=== PATIENT | female | born 1950 | race Caucasian/White ===

== ENCOUNTER 2020-10-22 06:26 | Emergency (ER) | payer MEDICARE, SELFPAY ==
[2020-10-22 06:53] VITALS: BP 144/79; PULSE 83; RESP 14; TEMP 36.7; O2SAT 99
--- NOTE | 2020-10-22 07:13 | ED.GENADULT ---
HPI - General Adult General Chief complaint: Abdominal Pain Stated complaint: severe cramping Source: patient Mode of arrival: ambulatory Limitations: no limitations History of Present Illness HPI narrative: Marilou is a 70F with a PMH of osteoporosis and HLD that presented to the ED with abdominal pain. It woke her up at 0330 this morning. It is a waxing and waning bilateral lower abdominal pain. No nausea, vomiting, diarrhea, constipation, chest pain, SOB, dysuria, hematuria or back pain reported. No trauma to the area. Only previous abdominal surgery was sections. Related Data Home Medications Medication Instructions Recorded Confirmed ibandronate 150 mg PO MONTHLY 10/22/20 10/22/20 rosuvastatin 5 mg PO EVERY OTHER DAY 10/22/20 10/22/20 Allergies Allergy/AdvReac Type Severity Reaction Status Date / Time No Known Allergies Allergy Verified 10/22/20 06:48 Review of Systems Constitutional: Constitutional: Reports no additional constitutional complaints, Denies chills, Denies fever(s) and Denies weakness Eyes: Eyes: Reports no additional eye complaints ENT: Reports system reviewed and no additional complaints, except as documented Cardiovascular: Cardiovascular: Reports no additional cardiovascular complaints Respiratory: Respiratory: Reports no additional respiratory complaints Gastrointestinal: Gastrointestinal: Reports as per HPI Genitourinary: Genitourinary: Reports no additional female genitourinary complaints Musculoskeletal: Musculoskeletal: Reports no additional musculoskeletal complaints Integumentary/Breasts: Skin/Breast: Reports system reviewed and no additional complaints, except as docu Neurologic: Reports system reviewed and no additional complaints, except as documented Psychiatric: Psychiatric: Reports no additional psychiatric complaints [facility] Social History Social History Gender identity (if verbalized by the patient): Female Exam Const: General: no acute distress and alert Orientation/consciousness: patient oriented x3 Limitations: No altered mental status HENMT: Head: normal to inspection Eyes: Conjunctivae: conjunctivae normal Pupils: Equal, round and reactive pupils present Neck: Neck: normal visual inspection Chest: Chest palpation & inspection: normal inspection of the chest Resp: Effort & Inspection: normal respiratory effort Auscultation: clear to auscultation bilaterally Cardio: Rate: regular rate Rhythm: regular rhythm GI: Inspection: non-distended GI Palp: Yes Soft to palpation, No Guarding due to palpation present (GI) and No Rigid due to palpation Other: Mild TTP in the lower quadrants bilaterally. No rebound tenderness, no guarding, negative Bar sign. : General: Yes no CVA tenderness Skin: General skin exam: normal color Rashes: no rashes Neuro: General: patient oriented x3 and moves all extremities Extrem: General: normal to inspection Psych: Mental Status: mental status grossly normal Course Course Emergency Course: Marilou was evaluated. Given 1L of LR and 4mog of morphine for pain. She felt much better after the fluids and morphine. Her labs were largely unremarkable. Given she had no leukocytosis, no elevated ALT/AST or alk phos, lactic acid, recent BM (yesterday) and normal UA I believe this is from abdominal cramping and not acute appendicitis, cholecystitis, ischemic bowel, SBO, etc. She was told to return if she did not feel better. Vital Signs Vital signs: Vital Signs Temperature 98.0 F 10/22/20 06:53 Pulse Rate 83 10/22/20 06:53 Respiratory Rate 14 10/22/20 06:53 Blood Pressure 144/79 H 10/22/20 06:53 Pulse Oximetry 99 10/22/20 06:53 Temperature 98.0 F 10/22/20 06:53 Pulse Rate 83 10/22/20 06:53 Respiratory Rate 14 10/22/20 06:53 Blood Pressure 144/79 H 10/22/20 06:53 Pulse Oximetry 99 10/22/20 06:53 Medical Decision Jovanny
[2020-10-22] MEDS: MORPHINE SULFATE (*CRX) 4 MG/ML INJ IV PUSH (07:33)
[2020-10-22 07:34] LABS: Basophils Absolute Auto 0.03 K/mm3 (0.00-0.10); Basophils Percent Auto 0.5 % (0.0-1.0); Eosinophils Absolute Auto 0.02 K/mm3 (0.02-0.50); Eosinophils Percent Auto 0.3 % (1.0-6.0); Hematocrit 36.7 % (35.0-42.0); Hemoglobin 12.5 g/dL (11.7-13.8); Immature Granulocyte Absolute 0.02 K/mm3 (0.00-0.00); Immature Granulocyte Percent A 0.3 % (0.0-0.0); Lymphocytes Absolute Auto 1.14 K/mm3 (1.10-4.50); Lymphocytes Percent Auto 18.1 % (18.0-42.0); Mean Corpuscular HGB Conc 34.1 g/dL (32.0-36.0); Mean Corpuscular Hemoglobin 30.9 pg (27.0-31.0); Mean Corpuscular Volume 90.6 fL (78.0-102.0); Mean Platelet Volume 9.9 fl (9.2-11.8); Monocytes Absolute Auto 0.34 K/mm3 (0.10-0.90); Monocytes Percent Auto 5.4 % (2.0-11.0); Neutrophils Absolute Auto 4.8 K/mm3 (1.7-7.2); Neutrophils Percent Auto 75.4 % (50.0-70.0); Platelet Count Result 164 K/mm3 (150-420); Red Blood Count 4.05 M/mm3 (4.20-5.40); Red Cell Distribution Width 11.8 % (11.6-14.4); White Blood Count 6.3 K/mm3 (4.8-10.8)
[2020-10-22] MEDS: LACTATED RINGERS 1,000 ML 999 ML IV CONT (07:34)
[2020-10-22 07:36] LABS: Add Urine Microscopic? YES; Appearance Urine Clear (Clear); Bilirubin Urine Negative (Negative); Blood Urine 1+ (Negative); Color Urine Yellow (Yellow); Glucose Urine UA Negative (Negative); Ketones Urine Negative (Negative); Leukocyte Esterase Ur Negative (Negative); Nitrate Urine Negative (Negative); Protein Urine Negative (Negative); Specific Grav Ur >= 1.030 (1.010-1.020); Urobilinogen Urine 0.2 mg/dL (0.2-1.0); pH Urine 5.5 (5.0-8.0)
[2020-10-22 07:40] LABS: RBC Urine 0-2 /hpf (0-2); WBC Urine None seen /hpf (0-3)
[2020-10-22 07:41] LABS: Bacteria Urine Trace /hpf; Squamous Epithelial Cell Urine Rare /hpf (Few)
[2020-10-22 07:46] LABS: INR 1.1; Prothrombin Time 11.3 Seconds (9.50-12.10)
[2020-10-22 07:49] LABS: Alanine Aminotransferase 20 U/L (14-59); Albumin Level 3.8 g/dL (3.4-5.0); Alkaline Phosphatase 41 U/L (46-116); Anion Gap 9 mmol/L (8-16); Aspartate Amino Transferase 20 U/L (15-37); Bilirubin,Total 0.9 mg/dL (0.00-1.00); Blood Urea Nitrogen 9 mg/dL (7-18); Calcium 9.2 mg/dL (8.5-10.1); Carbon Dioxide 29 mmol/L (21-32); Chloride 104 mmol/L (98-108); Estimated CRCL calculation 66 ml/min; Estimated Glomerular Filt Rate > 60; Glucose 109 mg/dL (70-99); Lipase 154 U/L (73-393); Osmolality Calculated 293 mOsm/kg (285-295); Potassium 3.6 mmol/L (3.5-5.1); Sodium 142 mmol/L (136-145); Total Protein 6.6 g/dL (6.4-8.2)
[2020-10-22 07:54] LABS: Lactic Acid Reflex 1.2 mmol/L (0.4-2.0)
[2020-10-22 08:17] LABS: CRP < 0.5 mg/dL (0.0-0.9)
[2020-10-22 08:38] VITALS: BP 131/67; PULSE 68; RESP 12; O2SAT 99
== END 2020-10-22 08:35 | disposition home or self-care (01) ==
PROVIDERS: Emergency Provider Family Medicine; PCP Internal Medicine
DX: R10.9 Unspecified abdominal pain (principal); E78.5 Hyperlipidemia, unspecified
CPT/HCPCS: 36415; 80053; 81001; 83605; 83690; 85025; 85610; 86140; 96361; 96374; 99283; 99284; J2270; J7120

== ENCOUNTER 2022-07-13 00:52 | Day surgery (SDC) | payer MEDICARE, SELFPAY ==
[2022-06-29 14:59] VITALS: BMI 17.9
[2022-07-13 10:15] VITALS: BP 134/62; PULSE 91; RESP 20; TEMP 36.6; O2SAT 98
[2022-07-13] MEDS: LACTATED RINGERS 1,000 ML 150 ML IV CONT (10:26)
--- NOTE | 2022-07-13 10:39 | P.PNAN_ITS ---
Anes - Initial Pre Proc Eval Procedure: Operation Date: 07/13/22 11:30 Proposed Procedures p Screening Colonoscopy - Naman Juarez MD Date/Time: 07/13/22 10:39 Surgeon: Naman Juarez MD Pre Op Diagnosis: neoplasm screening Patient Data Age: 71 Gender: F Height: 1.73 m Weight: 52.5 kg Last Vital Signs Temp 36.6 C 07/13/22 10:15 Pulse 91 07/13/22 10:15 Resp 20 07/13/22 10:15 BP 134/62 07/13/22 10:15 Pulse Ox 98 07/13/22 10:15 O2 Del Method Room Air 07/13/22 10:15 Allergies Allergy/AdvReac Type Severity Reaction Status Date / Time No Known Allergies Allergy Verified 07/13/22 10:13 Home Medications Medication Instructions Recorded Confirmed Type ibandronate 150 mg tablet 150 mg PO MONTHLY #3 tabs 05/11/22 06/29/22 Rx rosuvastatin 5 mg tablet 5 mg PO EVERY OTHER DAY #45 tabs 05/11/22 06/29/22 Rx Patient hx anesthesia problems: none Family hx anesthesia problems: none Results Review: All pre-operative results and documents have been reviewed as part of the pre- operative evaluation. [facility] Social History Social History Smoking status: Never smoker Substance use: never Substance use type: does not use Living arrangements: other Additional living arrangements comments: with sp Gender identity (if verbalized by the patient): Female Anes - Eval Final PreProcedure Day of Procedure 07/13/22 10:40 Patient weight: thin Heart: regular rate and rhythm Lungs: clear to auscultation Airway: Mallampati scale class II Neurological: alert and oriented Last oral intake: >/= 8 hours ASA classification: II Emergent: no Anesthetic plan: proceed Anesthesia type and monitoring: general GIVS and standard monitoring Results Review: All pre-operative results and documents have been reviewed as part of the pre- operative evaluation. Informed Consent: The patient's anesthetic plan and its attendant risks and benefits were discussed with the patient/family/POA. Questions were solicited and answers provided to the satisfaction of the patient/family/POA.
--- NOTE | 2022-07-13 10:55 | P.HP_ITS ---
History of Present Illness History of Present Illness Consent: Risks, benefits, and alternatives have been discussed and questions answered. Patient agrees to proceed with procedure. Chief complaint: neoplasm screening Narrative: Marilou Lewis is a 71 year old female here for screening colonoscopy, last one 10 years ago Review of Systems Constitutional: Constitutional: Denies headache(s) and Denies weakness Eyes: Eyes: Denies blurry vision ENT: Reports Normal hearing present, Denies headache(s) and Denies neck pain Cardiovascular: Cardiovascular: Denies chest pain and Denies dyspnea Respiratory: Respiratory: Denies dyspnea Gastrointestinal: Gastrointestinal: Reports no additional gastrointestinal com plaints Genitourinary: Genitourinary: Denies dysuria Musculoskeletal: Musculoskeletal: Denies neck pain Integumentary/Breasts: Skin/Breast: Denies dry skin Neurologic: Reports Normal hearing present, Denies headache(s) and Denies weakness Psychiatric: Psychiatric: Denies anxiety Endocrine: Endocrine: Denies change in body appearance Hematologic/Lymphatic: Hematologic/Lymphatic: Denies easy bleeding Allergic/Immunologic: Allergic/Immunologic: Denies urticaria [facility] Social History Social History Smoking status: Never smoker Substance use: never Substance use type: does not use Living arrangements: other Additional living arrangements comments: with sp Gender identity (if verbalized by the patient): Female Meds Home Medications and Allergies Home Medications Medication Instructions Recorded Confirmed Type ibandronate 150 mg tablet 150 mg PO MONTHLY #3 tabs 05/11/22 06/29/22 Rx rosuvastatin 5 mg tablet 5 mg PO EVERY OTHER DAY #45 tabs 05/11/22 06/29/22 Rx Allergies Allergy/AdvReac Type Severity Reaction Status Date / Time No Known Allergies Allergy Verified 07/13/22 10:13 Vital Signs Vital Signs - 24 hr 07/13/22 10:15 Temperature 97.9 F Pulse Rate 91 Respiratory Rate 20 Blood Pressure 134/62 Pulse Oximetry 98 Oxygen Delivery Room Air Exam Const: General: comfortable and no acute distress HENMT: Face/Nose/Sinus: Normal nares present Eyes: General: appearance normal, both eyes and all related structures Neck: Neck: no JVD Resp: Auscultation: clear to auscultation bilaterally Cardio: Rate: regular rate Rhythm: regular rhythm GI: Inspection: non-distended GI Palp: Yes Soft to palpation Skin: General skin exam: normal color Neuro: General: gait normal Speech: normal speech Extrem: General: normal to inspection Psych: Mental Status: mental status grossly normal Assessment and Plan Assessment and plan (1) Screening for colorectal cancer: Code(s): Z12.11 - Encounter for screening for malignant neoplasm of colon; Z12.12 - Encounter for screening for malignant neoplasm of rectum Status: Acute Assessment and Plan: colonoscopy
[2022-07-13 11:19] VITALS: BP 105/62; PULSE 80; RESP 20; O2SAT 98
[2022-07-13 11:29] VITALS: BP 113/65; PULSE 76; RESP 20; O2SAT 100
[2022-07-13 11:39] VITALS: BP 113/66; PULSE 74; RESP 20; O2SAT 100
== END 2022-07-13 11:46 | disposition home or self-care (01) ==
PROVIDERS: PCP Physician Assistant Medical; Visit Provider Internal Medicine Gastroenterology
PROC: 0DJD8ZZ Inspection of Lower Intestinal Tract, Via Natural or Artificial Opening Endoscopic (ICD-10-PCS; CPT 45378; principal; 2022-07-13 11:30)
DX: Z12.11 Encounter for screening for malignant neoplasm of colon (principal); K57.30 Diverticulosis of large intestine without perforation or abscess without bleeding; K64.8 Other hemorrhoids
CPT/HCPCS: G0121; J2704; J7120

== ENCOUNTER 2023-09-11 08:27 | Emergency (ER) | payer MEDICARE, SELFPAY ==
--- NOTE | 2023-09-11 08:29 | ED.EYEPROB ---
HPI - Eye Problem General Chief complaint: Eye Problems Stated complaint: pink eye Time Seen by Provider: 09/11/23 08:29 Source: patient Mode of arrival: ambulatory Limitations: no limitations History of Present Illness HPI Narrative: Patient is a 73-year-old female with exposure to conjunctivitis. She has right eye irritation and conjunctival matting. Also she has some redness under the right eye in the skin and early redness on the left under skin eye. chief complaint: eye redness Onset (ago): day(s) (1) Onset description: gradual Duration: constant Location: right eye Eye Symptoms: itching, discharge and blurry vision Place: home Mechanism: none Severity: mild Severity scale (1-10): 1 If Pain, Quality: burning Associated symptoms: none Treatments Prior to Arrival: none Related Data Allergies Allergy/AdvReac Type Severity Reaction Status Date / Time No Known Allergies Allergy Verified 09/11/23 08:31 Review of Systems Review of Systems: All systems reviewed & are unremarkable except as noted in HPI and below Constitutional: Constitutional: Reports no additional constitutional complaints Eyes: Eyes: Reports no additional eye complaints ENT: Reports system reviewed and no additional complaints, except as documented Cardiovascular: Cardiovascular: Reports no additional cardiovascular complaints Respiratory: Respiratory: Reports no additional respiratory complaints Gastrointestinal: Gastrointestinal: Reports no additional gastrointestinal complaints Genitourinary: Genitourinary: Reports no additional female genitourinary complaints Musculoskeletal: Musculoskeletal: Reports no additional musculoskeletal complaints Integumentary/Breasts: Skin/Breast: Reports system reviewed and no additional complaints, except as docu Neurologic: Reports system reviewed and no additional complaints, except as documented Psychiatric: Psychiatric: Reports no additional psychiatric complaints Endocrine: Endocrine: Reports no additional endocrine complaints Hematologic/Lymphatic: Hematologic/Lymphatic: Reports no additional hematologic/lymphatic complaints Allergic/Immunologic: Allergic/Immunologic: Reports no additional allergic/immunologic complaints PMFSH Past Medical History Medical History Dyslipidemia (high LDL; low HDL) Osteopenia Surgical History Surgical History No pertinent past surgical history Social History Social History Smoking status: Never smoker Second hand tobacco smoke exposure: Yes Alcohol intake: current Alcohol use details: occasional Substance use: never Substance use type: does not use Lack of Transportation: No Lack of Food: Never True Current Housing: I Have Housing Concerned About Future Housing: No Difficulty Paying Gas/Electric Bills: No Difficulty Paying for Meds: No Currently Unemployed: No Education: High School Diploma/GED Difficulty w/ Childcare or Family Care: No Living arrangements: with family Additional living arrangements comments: with spouse Occupation/Education: retired Gender identity (if verbalized by the patient): Female Sexual Orientation (if Verbalized by the Patient): Straight or Heterosexual Exam Const: General: healthy appearing Nutritional Appearance: well nourished Orientation/consciousness: patient oriented x3 HENMT: Head: normal to inspection Ears: external ears normal Face/Nose/Sinus: Normal external nose present Eyes: Conjunctivae: conjunctival abnormality (red) right Pupils: Equal, round and reactive pupils present EOM: EOMs intact bilaterally Neck: Neck: normal visual inspection Chest: Chest palpation & inspection: normal inspection of the chest Resp: Effort & Inspection: normal respiratory effort Auscultation: clear to auscultation bila
[2023-09-11 08:30] VITALS: BP 136/72; PULSE 72; RESP 14; TEMP 36.4; O2SAT 99
== END 2023-09-11 08:45 | disposition home or self-care (01) ==
PROVIDERS: Emergency Provider Emergency Medicine
DX: H10.9 Unspecified conjunctivitis (principal); A46 Erysipelas; E78.5 Hyperlipidemia, unspecified
CPT/HCPCS: 99283